=== PATIENT | male | born 1990 | race Caucasian/White ===

== ENCOUNTER 2023-05-15 20:24 | Emergency (ER) | payer OTHER ==
[~2023-05-15] VITALS: Ht 185.4 cm; Wt 117.9 kg
[2023-05-15 22:08] LABS: BASOPHILS ABSOLUTE AUTO 0.05 K/mm3 (0.00-0.23); BASOPHILS PERCENT AUTO 1 % (0-2); EOSINOPHILS ABSOLUTE AUTO 0.13 K/mm3 (0.00-0.68); EOSINOPHILS PERCENT AUTO 2 % (0-6); Hematocrit 43.1 % (37.0-53.0); Hemoglobin 14.6 g/dL (13.5-17.5); IMMATURE GRAN ABSOLUTE AUTO 0.02 K/mm3 (0.00-0.10); IMMATURE GRAN PERCENT AUTO 0 % (0-1); LYMPHOCYTES ABSOLUTE AUTO 1.82 K/mm3 (0.84-5.20); LYMPHOCYTES PERCENT AUTO 20 % (21-46); MONOCYTES ABSOLUTE AUTO 0.69 K/mm3 (0.16-1.47); MONOCYTES PERCENT AUTO 8 % (4-13); Mean Corpuscular HGB 29.4 pg (26.0-34.0); Mean Corpuscular HGB Conc 33.9 g/dL (31.5-36.5); Mean Corpuscular Volume 87 fL (80-100); Mean Platelet Volume 10.9 fL (9.1-12.4); NEUTROPHILS ABSOLUTE AUTO 6.23 K/mm3 (1.96-9.15); NEUTROPHILS PERCENT AUTO 70 % (41-73); Platelet Count 261 K/mm3 (150-400); RDW Coefficient Variation 12.4 % (11.7-14.2); RDW Standard Deviation 39.6 fL (35.1-46.3); Red Blood Cell Count 4.96 M/mm3 (4.30-5.90); White Blood Cell Count 8.94 K/mm3 (4.00-11.30)
[2023-05-15 22:20] LABS: Albumin, Blood 3.9 g/dL (3.4-5.0); Albumin/Globulin Ratio 1.1 (0.8-1.8); Bilirubin, Total 0.1 mg/dL (0.1-1.0); Bun/Creatinine Ratio 11.4 (12.0-20.0); Calcium, Blood 8.8 mg/dL (8.5-10.1); Creatinine, Blood 1.05 mg/dL (0.60-1.20); Globulin, Blood 3.6 g/dL (2.2-4.0); Potassium, Blood 4.2 mmol/L (3.5-5.5); Total Protein, Blood 7.5 g/dL (6.4-8.2)
[2023-05-16] MEDS ORDERED: LOPE2C PO (00:17)
[2023-05-16 00:30] VITALS: BP 130/95
== END 2023-05-16 00:47 | disposition home or self-care (01) ==
LOC: ER 20:24
PROVIDERS: Student in an Organized Health Care Education/Training Program
DX: R19.7 Diarrhea, unspecified (principal); R10.812 Left upper quadrant abdominal tenderness
CPT/HCPCS: 80053; 85025; 96360; 99284-25; A9270; J7030

== ENCOUNTER 2023-10-17 18:45 | Emergency (ER) | payer OTHER ==
[~2023-10-17] VITALS: Ht 185.4 cm; Wt 117.9 kg
[~2023-10-17 18:45] MED LIST: LOPE2C PO
[2023-10-17 19:06] VITALS: BP 129/94
[2023-10-17] MEDS ORDERED: Doxycycline Hyclate 100 MG TAB PO ONE (19:10)
[2023-10-20 14:38] LABS: LYME VLSE1/PEPC10 ABS, ELISA 0.67 IV (<=0.90)
== END 2023-10-17 20:14 | disposition home or self-care (01) ==
LOC: ER 18:45
PROVIDERS: Physician Assistant
DX: S30.861A Insect bite (nonvenomous) of abdominal wall, initial encounter (principal); W57.XXXA Bitten or stung by nonvenomous insect and other nonvenomous arthropods, initial encounter
CPT/HCPCS: 86618; 99282; A9270